=== PATIENT | male | born 1940 | race Caucasian/White ===

== ENCOUNTER 2017-01-24 14:00 | Emergency (ER) | payer MEDICARE, BC ==
[2017-01-24] MEDS ORDERED: ACETAMINOPHEN 500 MG 500 MG TAB PO ONE (14:23)
[2017-01-24] MEDS ORDERED: ACETAMINOPHEN 500 MG 500 MG TAB ONE (14:24)
[2017-01-24 14:33] VITALS: TEMP 98.5
[2017-01-24 14:48] LABS: BASOPHILS % (AUTO) 1 % (0-3); EOSINOPHILS % (AUTO) 2 % (0-9); HEMATOCRIT 37 % (39-53); MEAN CORPUSCULAR HGB CONC 34.6 gm/dl (32.0-36.0); MEAN CORPUSCULAR VOLUME 85 fL (80-100); MONOCYTES % (AUTO) 6.3 % (0-12); NEUTROPHILS % (AUTO) 63.3 % (37-80)
[2017-01-24 14:52] LABS: CALCIUM 8.8 mg/dl (8.5-10.1); POTASSIUM 3.6 mMol/L (3.5-5.1)
[2017-01-24 15:26] LABS: APPEARANCE,URINE Clear; BILIRUBIN,URINE NEGATIVE (NEGATIVE); COLOR,URINE Yellow; GLUCOSE, URINE (UA) NEGATIVE (NEGATIVE); KETONES,URINE NEGATIVE (NEGATIVE); LEUKOCYTE ESTERASE ,URINE NEGATIVE (NEGATIVE); NITRATE,URINE NEGATIVE (NEGATIVE); OCCULT BLOOD,URINE NEGATIVE (NEG-TRACE); PH,URINE 5.5; UROBILINOGEN,URINE 0.2 (0.2-1.0 EU)
[2017-01-24] MEDS ORDERED: SODIUM CHLORIDE 0.9% 500 ML 500 ML IV SCH ×2 (15:30→15:38)
[2017-01-24 15:33] LABS: RBC,URINE 0-2 (0-3AV/HPF)
[2017-01-24] MEDS ORDERED: SODIUM CHLORIDE 0.9% 500 ML 500 ML IV ONE (15:38)
[2017-01-24] MEDS ORDERED: SODIUM CHLORIDE 0.9% FLUSH 10 ML SOL IV PRN (15:39)
[2017-01-24 15:50] VITALS: PULSE 58; RESP 17; O2SAT 98
[2017-01-24] MEDS ORDERED: HYDROCHLOROTHIAZIDE 25 MG TAB ONE (16:53)
[2017-01-24] MEDS ORDERED: HYDROCHLOROTHIAZIDE 25 MG TAB PO ONE (16:55)
[2017-01-24 17:40] VITALS: BP 161/85
== END 2017-01-24 17:19 | disposition home or self-care (01) | DRG 305 ==
LOC: ED 14:00
DX: I16.0 Hypertensive urgency (principal); Z86.79 Personal history of other diseases of the circulatory system
CPT/HCPCS: 36415; 70450; 71010; 80048; 81001; 85025; 85610; 85730; 93005; 96365; 99285; 99291